=== PATIENT | female | born 1985 | race Caucasian/White ===

== ENCOUNTER 2016-07-22 17:52 | Inpatient (IN) | payer MEDICAID ==
[~2016-07-22] VITALS: Ht 154.9 cm; Wt 70.9 kg
[~2016-07-22 17:52] MED LIST: PREN1TAB49 PO
--- NOTE | 2016-07-22 18:22 | RADRPT ---
PROCEDURE: OB ultrasound for biophysical profile CLINICAL INDICATION: Biophysical profile. . TECHNIQUE: Multiple sonographic images of the pelvis were obtained. Transabdominal view of the gr avid uterus are available for review. The images were reviewed on a PACS workstation. COMPARISON: OB ultrasound 07/21/2016 FINDINGS: Single intrauterine gestation. Presentation: cephalic. Placenta: anterior breathing movement = 2/2 tone = 2/2 motion = 2/2 PETTY = 2/2 PETTY = 10.3 cm heart rate: 150 beats per minute IMPRESSION: Single intrauterine gestation. Biophysical profile 03/01 RPTAT: PP .Clay Harris MD, MD Date Time Electronically viewed and signed by .Clay Harris MD, on 07/22/2016 18:21 .B/
[2016-07-22 18:24] VITALS: Ht 154.9 cm; Wt 70.9 kg
[2016-07-22] MEDS ORDERED: CALC600T11 PO (18:24)
[2016-07-22] MEDS ORDERED: METF500T4 PO (18:24)
[2016-07-22] MEDS ORDERED: FER325 PO (18:24)
[2016-07-22 18:25] VITALS: BP 148/92; PULSE 69; RESP 18
[2016-07-22 18:42] LABS: BASOPHILS % 0.4 % (0.0-2.0); HEMATOCRIT 37.1 % (37.0-47.0); HEMOGLOBIN 12.2 g/dl (12.0-16.0); LYMPHOCYTES # 1.5 10^3/ul (0.8-2.9); LYMPHOCYTES % 20.5 % (15.0-51.0); MEAN CORPUSCULAR HGB CONC 32.8 g/dl (32.0-37.0); MEAN CORPUSCULAR VOLUME 88.5 fl (82.0-101.0); MEAN PLATELET VOLUME 11.3 fl (7.4-10.4); MONOCYTE # 0.3 10^3/ul (0.3-0.9); NEUTROPHIL # 5.6 10^3/ul (1.6-7.5); NEUTROPHILS % 75.1 % (39.0-77.0); PLATELET COUNT 139 10^3/UL (140-440); RED BLOOD COUNT 4.19 10^6/ul (4.20-5.40); RED CELL DISTRIBUTION WIDTH 14.5 % (11.5-14.5); UNCORRECTED WBC 7.5 10^3/ul (4.8-10.8); WHITE BLOOD COUNT 7.5 10^3/ul (4.8-10.8)
[2016-07-22 18:50] LABS: CONDITION 1; SUSPECT 1
[2016-07-22 18:51] LABS: LH ANALYZER COMMENTS 1
[2016-07-22 18:52] LABS: URINE BILIRUBIN (Dip) NEGATIVE (NEGATIVE); URINE BLOOD (Dip) NEGATIVE (NEGATIVE); URINE COLOR LT. YELLOW (YELLOW); URINE GLUCOSE (Dip) NEGATIVE (NEGATIVE); URINE KETONES (Dip) NEGATIVE (NEGATIVE); URINE LEUKOCYTE ESTERASE (Dip) NEGATIVE (NEGATIVE); URINE NITRITE (Dip) NEGATIVE (NEGATIVE); URINE UROBILINOGEN (Dip) 0.2 E.U./dL (0.1-1.0)
[2016-07-22 18:55] LABS: ADD UMIC NO; URINE TOTAL PROTEIN (Dip) NEGATIVE (NEGATIVE)
[2016-07-22 19:12] LABS: ALBUMIN 3.3 g/dl (3.3-4.9)
[2016-07-22 19:15] LABS: BILIRUBIN,INDIRECT 0.3 mg/dl (0-1.1); BILIRUBIN,TOTAL 0.3 mg/dl (0.2-1.3); CREATININE 0.59 mg/dl (0.44-1.00)
[2016-07-22 19:16] LABS: ALBUMIN/GLOBULIN RATIO 0.86; CALCIUM 9.3 mg/dl (8.4-10.2); TOTAL PROTEIN 7.1 g/dl (6.1-8.1); URIC ACID 5.6 mg/dl (3.1-7.9)
[2016-07-22] MEDS ORDERED: METHYLERGONOVINE 0.2 MG INJ IM PRN (20:00)
[2016-07-22] MEDS ORDERED: OXYTOCIN 30 UNITS/LR 500 ML IV PRN (20:00)
[2016-07-22] MEDS ORDERED: CEFAZOLIN 2 GM/50 ML (PMX) 50 ML IV SCH (20:00)
[2016-07-22] MEDS ORDERED: MISOPROSTOL 200 MCG TAB PR PRN (20:00)
[2016-07-22] MEDS ORDERED: CARBOPROST 250 MCG INJ IM PRN (20:00)
[2016-07-22] MEDS ORDERED: MAGNESIUM SULFATE 4 GM/100 ML 100 ML IV ONE (20:00)
[2016-07-22 20:10] LABS: INR 0.91; PROTIME 12.3 Sec (12.2-14.2)
[2016-07-22] MEDS: LACTATED RINGER'S 1,000 ML IV SCH (20:11)
[2016-07-22] MEDS: MAGNESIUM SULFATE 20 GM/500 ML 500 ML IV SCH (20:51)
[2016-07-23] VITALS (7 sets, daily range): BP systolic 133–149; BP diastolic 64–84; PULSE 66–101; RESP 18–20
[2016-07-23] MEDS: ACCUCHECK XX SCH (07:45)
[2016-07-23] MEDS: MAGNESIUM SULFATE 20 GM/500 ML 500 ML IV SCH ×2 (08:04→16:15)
[2016-07-23] MEDS: LACTATED RINGER'S 1,000 ML IV SCH ×2 (08:05→17:28)
[2016-07-23] MEDS ORDERED: ACETAMINOPHEN 325 MG TAB PO PRN (09:00)
[2016-07-23] MEDS ORDERED: FENTAnyl 50 MCG/ML VIAL ONE (14:00)
[2016-07-23] MEDS ORDERED: morphine SULFATE/PF (10 MG/10 ML) INJ ONE (14:00)
[2016-07-23] MEDS ORDERED: PHENYLephrine (100 MCG/ML) 5ML SYG ONE (14:00)
[2016-07-23] MEDS ORDERED: EPHEDrine SULFATE 50 MG/5 ML SYG ONE (14:00)
[2016-07-23] MEDS ORDERED: ONDANSETRON 4 MG INJ ONE (14:15)
[2016-07-23] MEDS ORDERED: DIPHENHYDRAMINE 50 MG INJ ONE (14:43)
[2016-07-23] MEDS ORDERED: PROPOFOL 20 ML ONE (14:46)
--- NOTE | 2016-07-23 15:13 | HP ---
Date/Time of Note Date/Time of Note DATE: 07/23/16 TIME: 15:06 OB - History Hx of Present Free Text/Dictation admitted through clinic because of PIH Chief Complaint: headache Last Menstrual Period: Oct 27, 2015 Estimated Due Date: Aug 02, 2016 : 3 Para: 1 Spontaneous : 1 Therapeutic : 0 Care: Good Care Ultrasounds: Normal mid trimester US Obstetrical Complications: Gestational Diabetes Medical Complications: Other (previous C/S X 1 ) Past Family/Social History * Past Medical, Surgical, Family and Obstetric Histories reviewed from chart. Blood Type: O+ Rubella: immune RPR/VDRL: Negative GBS Status: Negative HBsAG: Negative OB Admission Exam Vital Signs Vital Signs Vital Signs Date Time Temp Pulse Resp B/P Pulse Ox O2 Delivery O2 Flow Rate FiO2 07/22/16 18:25 98.8 69 18 148/92 Room Air Physical Exam HEENT: WNL Heart: Rhythm Normal Lungs: Clear, Equal Abdomen: WNL Extremities: Normal Reflexes: Normal Cervical Dilatation: None Effacement: 0% Station: -3 Membranes: Intact Heart Rate: 150's Decelerations: No Decelerations Varibility: Marked Contractions on Admission: 6-10 Minutes Apart Intensity: Mild Last 72 hourBlood Glucose Bedside Glucose - 72 Hours Test 07/22/16 20:08 07/23/16 02:15 07/23/16 06:44 07/23/16 10:53 Bedside Glucose 71mg/dL (70-220) 111mg/dL (70-220) 78mg/dL (70-220) 72mg/dL (70-220) Last 72 hours Lab Results CBC & BMP 07/22/16 18:15 Liver Function Test 07/22/16 18:15 Alanine Aminotransferase (ALT/SGPT) 39 Albumin 3.3 Alkaline Phosphatase 217 H Aspartate Amino Transf (AST/SGOT) 45 Direct Bilirubin 0.00 Total Protein 7.1 Magnesium Level Test 07/23/16 00:11 07/23/16 05:38 07/23/16 13:15 Magnesium Level 5.6 *H 6.4 *H 5.9 *H OB Assessment/Plan Other Assessment: term gestation previous C/S X 1 PIH GDM Other plan: repeat C/S CONCEPCION VILLALOBOS MD Jul 23, 2016 15:13
--- NOTE | 2016-07-23 15:15 | OPR ---
Operative Report Planned Procedure Procedure date Jul 23, 2016 Procedure(s) repeat C/S Performed by: CONCEPCION VILLALOBOS MD Assisting provider: DYLON GOLD MD Anesthesiologist: LUISA ECHEVERRIA DO Pre-procedure diagnosis term gestation previous C/S X 1 PIH GDM Anesthesia Type: spinal Procedure Description Under satisfactory anaesthesia a Pfannenstiel incision was made two fingerbreadth above and parallel to the symphysis of pubis around the previous scar and previous scar was removed Incision was extended laterally to the border of the Recti muscles on either sides. Incision was carried down with sharp and blunt dissection until fascia was reached. Anterior Recti muscle fascia was incised in mid portion and incision extended laterally to the border of skin incision. Fascia was mobilized from muscle superiorly and Recti muscles were from midline using sharp and blunt dissection. Peritoneum was visualized; Avoiding bowel and bladder it was incised . Incision was extended superiorly and inferiorly. Bladder blade was placed. Posterior peritoneum covering the lower segment of the uterus and lower segment of the uterus were incised.Low transverse uterine incision was made on lower segment of the uterus. Incision extended laterally to the border of Round Lig. on either sides and baby was delivered from OT. position . Amniotic fluid appeared clear. Cord blood was obtained and cord had 3 vessels . Placenta was delivered spontaneously and appeared intact and complete. Intrauterine cavity was rubbed with a laparotomy sponge. Uterine incision was closed in 2 layers using running stitches of No1 Monocryl. Hemostasis appeared secure. Ovaries and Fallopian tubes were within normal limits. Announcing needle, lap sponge and instrument count to be correct abdomen was closed in layers as follows: Peritoneum and Recti muscles with running stitches of 20 Vicryl. Fascia with running stitch of No 1 PDS. Subcutaneous tissue with running stitches of 20 Chromic and skin was closed using maureen. Patient tolerated the procedure well and was transferred to [facility] in good condition. Post-Procedure Post-procedure diagnosis S/P C/S Findings: Live Baby Specimen removed: No Complications: None Pt Condition post procedure: stable Disposition: PACU Physician Certification I, the undersigned physician, hereby certify that I have discussed the procedure described in this consent form with this patient (or the patient's legal education courses sales representative), including: * The risk and benefits of the procedure; * Any adverse reactions that may reasonably be expected to occur; * Any alternative efficacious methods of treatment which may be medically viable ; * The potential problems that may occur during recuperation; * Potential for blood transfusion and associated risks/benefits; and * Any research or economic interest I may have regarding this treatment. I further certify that the patient/legally responsible person was encouraged to ask question and that all questions were answered. CONCEPCION VILLALOBOS MD Jul 23, 2016 15:15
[2016-07-23] MEDS ORDERED: HYDROmorphONE 1 MG/ML SYG IV PRN (15:30)
[2016-07-23] MEDS ORDERED: ZOLPIDEM 5 MG TAB PO PRN (15:30)
[2016-07-23] MEDS ORDERED: DIPHENHYDRAMINE 50 MG INJ IV PRN (15:30)
[2016-07-23] MEDS ORDERED: ONDANSETRON 4 MG INJ IV PRN (15:30)
[2016-07-23] MEDS ORDERED: NALOXONE (0.4 MG/ML) INJ IV PRN (15:30)
[2016-07-23] MEDS ORDERED: OXYTOCIN 30 UNITS/LR 500 ML IV PRN (17:30)
[2016-07-23] MEDS ORDERED: MISOPROSTOL 200 MCG TAB PR PRN (17:30)
[2016-07-23] MEDS ORDERED: CEFAZOLIN 2 GM/50 ML (PMX) 50 ML IV SCH (17:30)
[2016-07-23] MEDS ORDERED: NA PHOSPHATE/BIPHOS 133 ML ENEMA PR PRN (17:30)
[2016-07-23] MEDS ORDERED: OXYCODONE/ACETAMINOPHEN (5/325) TAB PO PRN (17:30)
[2016-07-23] MEDS ORDERED: LANOLIN 7 GM TUBE TOP PRN (17:30)
[2016-07-23] MEDS ORDERED: METHYLERGONOVINE 0.2 MG INJ IM PRN (17:30)
[2016-07-23] MEDS ORDERED: CARBOPROST 250 MCG INJ IM PRN (17:30)
[2016-07-23] MEDS ORDERED: ACETAMINOPHEN/CODEINE #3 TAB PO PRN (17:30)
[2016-07-23] MEDS: CLINDAMYCIN 300 MG CAP PO SCH (18:00)
[2016-07-23] MEDS: metFORMIN 500 MG TAB PO SCH (20:52)
[2016-07-23] MEDS: SENNA/DOCUSATE NA (8.6MG/50MG) TAB PO SCH (21:00)
[2016-07-23] MEDS: CEFAZOLIN 2 GM/50 ML (PMX) 50 ML IVPB SCH (22:22)
[2016-07-24] VITALS (17 sets, daily range): BP systolic 116–135; BP diastolic 69–88; PULSE 76–105; RESP 18–20
[2016-07-24] MEDS: LACTATED RINGER'S 1,000 ML IV SCH ×3 (00:52→11:52)
[2016-07-24] MEDS: MAGNESIUM SULFATE 20 GM/500 ML 500 ML IV SCH (01:45)
[2016-07-24] MEDS: CLINDAMYCIN 300 MG CAP PO SCH ×5 (05:40→23:35)
[2016-07-24] MEDS: CEFAZOLIN 2 GM/50 ML (PMX) 50 ML IVPB SCH ×2 (05:41→14:15)
[2016-07-24] MEDS: ACCUCHECK XX SCH ×4 (07:45→21:19)
[2016-07-24 08:09] LABS: BASOPHILS % 0.1 % (0.0-2.0); EOSINOPHILS % 0.1 % (0.0-7.0); HEMATOCRIT 32.9 % (37.0-47.0); HEMOGLOBIN 10.9 g/dl (12.0-16.0); LYMPHOCYTES # 1.5 10^3/ul (0.8-2.9); LYMPHOCYTES % 15.4 % (15.0-51.0); MEAN CORPUSCULAR HEMOGLOBIN 29.3 pg (29.0-33.0); MEAN CORPUSCULAR HGB CONC 33.3 g/dl (32.0-37.0); MEAN CORPUSCULAR VOLUME 88.2 fl (82.0-101.0); MEAN PLATELET VOLUME 10.4 fl (7.4-10.4); MONOCYTE # 0.4 10^3/ul (0.3-0.9); NEUTROPHIL # 7.7 10^3/ul (1.6-7.5); NEUTROPHILS % 80.4 % (39.0-77.0); PLATELET COUNT 129 10^3/UL (140-440); RED BLOOD COUNT 3.73 10^6/ul (4.20-5.40); RED CELL DISTRIBUTION WIDTH 14.4 % (11.5-14.5); UNCORRECTED WBC 9.6 10^3/ul (4.8-10.8); WHITE BLOOD COUNT 9.6 10^3/ul (4.8-10.8)
[2016-07-24 08:41] LABS: CONDITION 1
[2016-07-24] MEDS: SENNA/DOCUSATE NA (8.6MG/50MG) TAB PO SCH ×2 (08:43→21:16)
[2016-07-24] MEDS: HYDROmorphONE 1 MG/ML SYG IV PRN ×2 (08:44→13:47)
[2016-07-24] MEDS: metFORMIN 500 MG TAB PO SCH ×2 (09:00→21:25)
[2016-07-24] MEDS ORDERED: BISACODYL 10 MG SUPP PR ONE (10:00)
--- NOTE | 2016-07-24 13:37 | PN ---
Date/Time of Note Date/Time of Note DATE: 07/24/16 TIME: 13:34 Assessment/Plan VTE Prophylaxis VTE Prophylaxis Intervention: ambulation Lines/Catheters IV Catheter Type (from Nrs): Peripheral IV Assessment/Plan Assessment/Plan S/P C/S POD # 1 PIH will advance diet and ambulate Subjective 24 Hr Interval Summary No C/O H/A B/V or E/P passing flatus , NO BM Exam/Review of Systems Vital Signs Vitals Vital Signs Date Time Temp Pulse Resp B/P Pulse Ox O2 Delivery O2 Flow Rate FiO2 07/24/16 11:45 98.4 91 20 135/84 Room Air Intake and Output 07/23/16 07/23/16 07/24/16 15:00 23:00 07:00 Intake Total 1550 ml 950 ml 875 ml Output Total 3100 ml 400 ml 1300 ml Balance -1550 ml 550 ml -425 ml Exam Free Text/Dictation vss BPs are stable general P/E grossly normal Abdomen : soft BS + Incision covered Results Result Diagram: 07/24/16 0715 07/22/16 1815 CONCEPCION VILLALOBOS MD Jul 24, 2016 13:36
[2016-07-24] MEDS: IBUPROFEN 800 MG TAB PO SCH ×2 (15:16→22:14)
[2016-07-25] MEDS: LACTATED RINGER'S 1,000 ML IV SCH ×3 (03:27→19:18)
[2016-07-25] MEDS ORDERED: KETOROLAC 30 MG INJ IV PRN (03:30)
[2016-07-25] MEDS: KETOROLAC 30 MG INJ IV PRN ×2 (03:45→11:11)
[2016-07-25 04:30] VITALS: BP 131/78; PULSE 74; RESP 20
[2016-07-25] MEDS: IBUPROFEN 800 MG TAB PO SCH ×3 (06:00→21:23)
[2016-07-25] MEDS: CLINDAMYCIN 300 MG CAP PO SCH ×3 (06:00→18:53)
[2016-07-25 08:00] VITALS: BP 127/86; PULSE 96; RESP 18
[2016-07-25] MEDS: metFORMIN 500 MG TAB PO SCH ×2 (08:05→17:45)
[2016-07-25] MEDS: ACCUCHECK XX SCH ×2 (08:20→10:05)
[2016-07-25] MEDS: SENNA/DOCUSATE NA (8.6MG/50MG) TAB PO SCH ×2 (09:00→21:23)
--- NOTE | 2016-07-25 11:52 | PN ---
Date/Time of Note Date/Time of Note DATE: 07/25/16 TIME: 11:49 Assessment/Plan VTE Prophylaxis VTE Prophylaxis Intervention: ambulation Lines/Catheters IV Catheter Type (from Nrsg): Peripheral IV Assessment/Plan Assessment/Plan ? illeus POD # 2 S/P C/S 2 views of abdomen is pending will decide based on results Subjective 24 Hr Interval Summary C/O Nausea vomiting Exam/Review of Systems Vital Signs Vitals Vital Signs Date Time Temp Pulse Resp B/P Pulse Ox O2 Delivery O2 Flow Rate FiO2 07/25/16 08:00 98.3 96 18 127/86 Room Air Intake and Output 07/24/16 07/24/16 07/25/16 15:00 23:00 07:00 Intake Total 500 ml 125 ml Output Total 1500 ml 1300 ml Balance -1000 ml -1300 ml 125 ml Exam Free Text/Dictation Abdomen: soft BS + Incision: healing well Results Result Diagram: 07/24/16 0715 07/22/16 1815 CONCEPCION VILLALOBOS MD Jul 25, 2016 11:51
[2016-07-25 12:32] VITALS: BP 128/72; PULSE 86; RESP 18
--- NOTE | 2016-07-25 13:18 | QN ---
Documentation Comment Not passing flatus! Abdomen: soft bs present incision: healing CONCEPCION VILLALOBOS MD Jul 25, 2016 13:18
--- NOTE | 2016-07-25 13:23 | QN ---
Documentation Comment await 2 views of the abdomen will start on laxatives CONCEPCION VILLALOBOS MD Jul 25, 2016 13:23
[2016-07-25] MEDS ORDERED: BISACODYL 10 MG SUPP PR ONE ×3 (13:30→13:46)
[2016-07-25] MEDS ORDERED: NA PHOSPHATE/BIPHOS 133 ML ENEMA PR ONE (13:30)
[2016-07-25 16:30] VITALS: BP 114/65; PULSE 72; RESP 18
--- NOTE | 2016-07-25 19:18 | RADRPT ---
PROCEDURE: XR Abdomen. CLINICAL INDICATION: Vomiting TECHNIQUE: Supine and upright views of the abdomen are available for review. COMPARISON: None. FINDINGS: There is diffuse gaseous distension of large and small bowel, suggestive of ileus no pneumoperitoneu m or gross evidence of bowel obstruction is seen. There are no abnormal calcifications overlying the urinary tracts. The osseous structures are unremarkable. IMPRESSION: 1. Findings suggestive of ileus, as above. RPTAT: QQ .Chencho Nance MD, MD Date Time Electronically viewed and signed by .Chencho Nance MD, MD on 07/25/2016 15:22 .R/
[2016-07-25 20:00] VITALS: BP 124/71; PULSE 79; RESP 17
[2016-07-26] MEDS: CLINDAMYCIN 300 MG CAP PO SCH ×3 (00:22→12:49)
[2016-07-26] MEDS: LACTATED RINGER'S 1,000 ML IV SCH ×2 (03:30→11:30)
[2016-07-26 04:00] VITALS: BP 107/70; PULSE 68; RESP 18
[2016-07-26] MEDS: IBUPROFEN 800 MG TAB PO SCH ×2 (05:41→13:59)
[2016-07-26 07:30] VITALS: BP 134/71; PULSE 66; RESP 16
[2016-07-26] MEDS: ACCUCHECK XX SCH ×3 (07:30→15:30)
[2016-07-26] MEDS: metFORMIN 500 MG TAB PO SCH (08:05)
[2016-07-26] MEDS: SENNA/DOCUSATE NA (8.6MG/50MG) TAB PO SCH (08:39)
[2016-07-26] MEDS ORDERED: DIPHTH/TET/ACEL PERTUSS (ADULT) 0.5 ML VIAL IM* ONE (09:00)
[2016-07-26] MEDS ORDERED: MEASLES,MUMPS,RUBELLA VACCINE INJ SC* ONE (09:00)
--- NOTE | 2016-07-26 15:09 | DS ---
Date/Time of Note Date/Time of Note DATE: 07/26/16 TIME: 15:08 Obstetrical Discharge Record Final Diagnosis Final Diagnosis: Term delivered Other Final Diagnosis S/P C/S Section Section: Repeat Complications Gestational Diabetes, Preg induced Hypertension Condition on Discharge Physical Assessment Last Vitals: see nurses notes Voiding: Yes Bowel Movement: Yes Breast: Soft, non-tender, Filling Fundus: Firm Abdomen and Incision: soft bs + Episiotomy: NA Calf Tenderness: No Patient Condition: Good CONCEPCION VILLALOBOS MD Jul 26, 2016 15:09
--- NOTE | 2016-07-26 15:10 | DS ---
Date/Time of Note Date/Time of Note DATE: 07/26/16 TIME: 15:09 Discharge Summary Admission/Discharge Info Admit Date/Time Jul 22, 2016 at 19:38 Discharge Date/Time 06/25/2016 Final Diagnosis S/P C/S Patient Condition: Good Procedures repeat C/S Hx of Present Illness 31 y/o female had repeat C/S Hospital Course Uncomplicated Home Meds Reported Medications Ferrous Sulfate* (Ferrous Sulfate*) 325 Mg Tabec, 325 MG PO DAILY, TAB 07/22/16 Calcium Carbonate* (Calcium Carbonate*) 600 MG Ca Tab, 600 MG PO DAILY, TAB 07/22/16 Metformin* (Glucophage*) 500 Mg Tab, 500 MG PO BID, #30 TAB 07/22/16 Vits W-Ca,Fe,Fa(<1MG) () 1 Tab Tablet, 1 TAB PO DAILY 04/02/11 Follow-up Plan 2 days in clinic for staple removal Pending Labs Laboratory Tests Test 07/25/16 21:27 07/26/16 07:39 07/26/16 10:15 Bedside Glucose 79mg/dL (70-220) 58mg/dL (70-220) 162mg/dL (70-220) CONCEPCION VILLALOBOS MD Jul 26, 2016 15:10
--- NOTE | 2016-07-26 15:14 | PD.PPDC ---
[employer] Discharge Instruction Provider Information Physician Information 31 y/o female had repeat C/S at 38 weeks for PIH Diagnosis Final Diagnosis: S/P vaginal delivery Condition Patient Condition: Good Diet Diet: Resume Regular Diet Activity/Restrictions Activity: November Shower Restrictions: No Exercising No Lifting Nothing in the Vagina Return to Work or School: Sep 27, 2016 Follow-up Follow-up with Physician: 2, Day/Days Provider Information: in clinic for staple removal Return to clinic for [employer] Instructions: Fever greater than 101 Chills Excessive Vaginal Bleeding OB Instructions: Breast Tenderness Depression Surgical Instructions: Incisional Drainage Incisional Redness CONCEPCION VILLALOBOS MD Jul 26, 2016 15:13
[2016-07-26] MEDS ORDERED: PERCOCET PO (15:15)
[2016-07-26] MEDS ORDERED: IBUP800T25 PO (15:15)
[2016-07-26 16:18] VITALS: BP 122/85; PULSE 73; RESP 16
== END 2016-07-26 17:07 | disposition home or self-care (01) | DRG 774 ==
LOC: L-D 17:52 → OBT 17:52 → L-D 19:38 → OBT 19:38 → L-D 07-23 13:45 → PP1 07-23 17:42
PROVIDERS: ADMIT Obstetrics & Gynecology; ATTEND Obstetrics & Gynecology
PROC: 10D07Z6 Extraction of Products of Conception, Vacuum, Via Natural or Artificial Opening (ICD-10-PCS; principal; 2016-07-23)
PROC: 0W8NXZZ Division of Female Perineum, External Approach (ICD-10-PCS; 2016-07-23)
DX: O76 Abnormality in fetal heart rate and rhythm complicating labor and delivery (principal); O75.2 Pyrexia during labor, not elsewhere classified; O69.1XX0 Labor and delivery complicated by cord around neck, with compression, not applicable or unspecified; O77.0 Labor and delivery complicated by meconium in amniotic fluid; Z3A.40 40 weeks gestation of pregnancy; Z37.0 Single live birth
CPT/HCPCS: 59025; 74010; 76818; 80053; 81003; 82962; 83735; 84560; 85025; 85610; 85730; 86592; 86850; 86900; 86901; 90715; 99464; G0463; J0690; J1170; J1200; J1885; J2274; J2370; J2405; J2590; J3010; J3475; J7120